=== PATIENT | male | born 1990 | race Caucasian/White ===

== ENCOUNTER 2023-04-05 11:55 | Emergency (ER) | payer BC ==
[~2023-04-05] VITALS: Ht 177.8 cm; Wt 72.7 kg
[2023-04-05 12:08] VITALS: BP 120/79; PULSE 61; RESP 18; TEMP 97.8; O2SAT 100
[2023-04-05] MEDS ORDERED: MECLIZINE 25MG TABLET PO ONE (14:15)
[2023-04-05] MEDS ORDERED: MECLIZINE 12.5MG TABLET PO NR (14:45)
[2023-04-05] MEDS ORDERED: MECL-159 MT ×2 (15:41)
== END 2023-04-05 15:56 | disposition home or self-care (01) ==
LOC: ER 11:55
DX: R42 Dizziness and giddiness (principal); R11.2 Nausea with vomiting, unspecified
CPT/HCPCS: 99282; J8597